=== PATIENT | female | born 1960 | race African-American/Black ===

== ENCOUNTER 2018-07-08 15:11 | Emergency (ER) | payer BC ==
[~2018-07-08 15:11] MED LIST: ISOVUE-370 76%-LOCM 1 ML ONE
[2018-07-08] MEDS ORDERED: Adacel (T-DAP) 0.5 ML SYRINGE ONE (15:27)
[2018-07-08] MEDS ORDERED: Morphine 4 MG/ML VIAL ONE (15:31)
[2018-07-08] MEDS ORDERED: Ondansetron PF 4 MG/2 ML Vial ONE (15:31)
[2018-07-08 15:35] LABS: #Eosinphils 0.1 thou/uL (0.0-0.7); #Lymphocytes 3.1 thou/uL (1.20-3.40); #Neutrophils 10.8 thou/uL (1.40-6.50); %Basophils 0.1 % (0.0-1.0); %Eosinophils 0.8 % (0.0-10.0); %Lymphocytes 20.7 % (21.0-51.0); %Monocytes 6.6 % (0.0-10.0); %Neutrophils 71.8 % (42.0-75.0); Hemoglobin 12.9 g/dL (12.0-16.0); Mean Corpuscular HGB CONC 33.1 g/dL (32.0-36.0); Mean Corpuscular Hemoglobin 31.2 pg (27.0-31.0); Mean Corpuscular Volume 94.5 fL (78.0-98.0); Mean Platelet Volume 7.5 fL (7.4-10.4); Platelet Count 372 thou/uL (130-400); Red Blood Cell (RBC) Count 4.13 mill/uL (4.20-5.40)
[2018-07-08 15:49] LABS: ALT (SGPT) 41 U/L (8-55); AST (SGOT) 52 U/L (5-34); Albumin 4.1 g/dL (3.5-5.0); Alkaline Phosphatase 66 U/L (40-150); Anion Gap 18 mmol/L (10-20); BUN (Urea Nitrogen) 15 mg/dL (9.8-20.1); Bilirubin, Total 0.4 mg/dL (0.2-1.2); Calc. Creatinine Clearance 0 mL/min (70-130); Calcium 9.7 mg/dL (7.8-10.44); Carbon Dioxide 25 mmol/L (22-29); Chloride 100 mmol/L (98-107); Estimated GFR-MDRD 68; Globulin 3.5 g/dL (2.4-3.5); Glucose 149 mg/dL (70-105); Potassium 4.1 mmol/L (3.5-5.1); Protein, Total 7.6 g/dL (6.0-8.3); Sodium 139 mmol/L (136-145)
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
[2018-07-08] MEDS ORDERED: Ketorolac Tromethamine 30 MG/ML VIAL ONE (16:52)
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
== END 2018-07-08 18:00 | disposition home or self-care (01) ==
LOC: ERS 15:11
DX: S30.1XXA Contusion of abdominal wall, initial encounter (principal); S80.812A Abrasion, left lower leg, initial encounter; M25.512 Pain in left shoulder; J45.909 Unspecified asthma, uncomplicated; V49.9XXA Car occupant (driver) (passenger) injured in unspecified traffic accident, initial encounter
CPT/HCPCS: 70450; 71045; 71260; 72125; 72170; 74177; 80053; 83690; 85025; 90471; 90715; 94640; 96374; 96375; 99292; G0390; J1885; J2270; J2405; J7620; Q9966